=== PATIENT | female | born 1990 | race Caucasian/White ===

== ENCOUNTER 2020-11-08 18:15 | Emergency (ER) | payer BC ==
--- NOTE | 2020-11-08 18:57 | EDM.PDOC ---
<Reed Weldon - Last Filed: 11/08/20 18:56> ED HPI GENERAL MEDICAL PROBLEM - General Chief Complaint: LOGISTICS COORDINATOR Problem Stated Complaint: JERARDO REFERRAL Time Seen by Provider: 11/08/20 18:17 - History of Present Illness INITIAL COMMENTS - FREE TEXT/NARRATIVE: CHIEF COMPLAINT(S): Vaginal bleeding HISTORY OF PRESENT ILLNESS: This is a 30-year-old woman G1, P0 who comes to the emergency department with a chief complaint of vaginal bleeding. The patient states that she is at approximately 6 weeks gestation. 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 She states that she was seen at outside emergency department and was sent here for an ultrasound to evaluate. The patient states that starting today she started to have to a significant amount of vaginal bleeding but did not have any clots. She states that since having the bleeding today it has not improved. She denies any prior history of ectopic or miscarriage. She denies any history of . She denies any abdominal pain, fever or chills. She denies any trauma to the abdomen or any other concern. REVIEW OF SYSTEMS: Constitutional: Denies fever, chills. Eyes: Denies eye pain Ears, Nose, Mouth, & Throat: Denies earache Cardiovascular: Denies chest pain Respiratory: Denies shortness of breath Gastrointestinal: Denies Nausea, vomiting, diarrhea, hematochezia. Genitourinary: Positive for vaginal bleeding. Denies pelvic pain, dysuria, hematuria Skin:Denies a rash MSK: Denies joint pain Neurological: Denies blurred vision Psychiatric: Denies depression PAST MEDICAL HISTORY: As per history of present illness and as reviewed below otherwise noncontributory. SURGICAL HISTORY: As per history of present illness and as reviewed below otherwise noncontributory. LMP: 6 weeks ago SOCIAL HISTORY: As per history of present illness and as reviewed below otherwise noncontributory. FAMILY HISTORY: As per history of present illness and as reviewed below otherwise noncontributory. EXAMINATION OF ORGAN SYSTEMS/BODY AREAS: Constitutional: Blood pressure 140/112, heart rate 112, respiratory rate 16 with an oxygen saturation of 99% on room air. Temperature 36.6 General: Well-appearing woman who is in no acute distress Psychiatric: Appropriate mood and affect. Eyes: No scleral icterus or conjunctival erythema ENMT: Moist mucous membranes. No pharyngeal erythema Cardiovascular: Regular, rate, and rhythm. No gallops, murmurs, or rubs. Bilateral upper extremity pulses symmetric and intact. No peripheral edema. No JVD. Respiratory: Lungs clear to auscultation bilaterally. No wheezes, rales, or rhonchi. Gastrointestinal: Soft, non-tender, non-distended. Normoactive bowel sounds Genitourinary: No suprapubic tenderness Musculoskeletal: Normal range of motion. Skin: No lesions or abrasions. Neurological: Alert, GCS 15 MEDICAL DECISION MAKING AND COURSE IN THE ED WITH INTERPRETATION/REVIEW OF DIAGNOSTIC STUDIES: This is a 30-year-old woman who is G1, P0 at approximately 6 weeks gestation sent from outside hospital for concern for possible ectopic who comes to the emergency department with vaginal bleeding who is mildly tachycardic. At this time I did review the patient's outside records. Patient's labs are all within normal limits and quantitative hCG was elevated. At this time given the tachycardia we will perform a bedside ultrasound to evaluate for ruptured ectopic . Bedside transabdominal OB ultrasound Bedside transabdominal ultrasound ultrasound in 2 views reveals a single live intrauterine with a heart rate. There did appear to be a mild amount of pelvic fluid. We will obtain a formal ultrasound. Laboratory: CBC from outside hospital revealed a normal hemoglobin at 14.6 hematocrit of 42.4. Differential was normal. Quantitative hCG was 175,171. Type and screen revealed a positive. No program is indicated. DISPOSITION: Patient was signed out to oncoming night physician pending formal ultrasound read and final disposition CONDITION: Fair PROCEDURES: Bedside transabdominal OB ultrasound FINAL IMPRESSION(S)/DIAGNOSES: 1. Acute vaginal bleeding likely secondary to threatened Reed Weldon M.D. - Related Data Allergies Allergy/AdvReac Type Severity Reaction Status Date / Time cefaclor [From [facility]] Allergy Other Verified 11/08/20 18:25 Penicillins Allergy Other Verified 11/08/20 18:25 Home Meds: Home Meds Venlafaxine [Effexor] 25 mg PO DAILY 11/08/20 [History] Past Medical History - Past Health History Medical/Surgical History: Denies Medical/Surgical History - Infectious Disease History Infectious Disease History: Reports: None Social & Family History - Tobacco Use Tobacco Use Status *Q: Never Tobacco User - Caffeine Use Caffeine Use: Reports: None - Recreational Drug Use Recreational Drug Use: No ED ROS GENERAL - Review of Systems Review Of Systems: See Below ED EXAM, GI/ABD - Physical Exam Exam: See Below Departure - Departure Disposition: Home, Self-Care 01 Condition: Fair Clinical Impression: Threatened - Discharge Information *PRESCRIPTION DRUG MONITORING PROGRAM REVIEWED*: No *COPY OF PRESCRIPTION DRUG MONITORING REPORT IN PATIENT CALEB: No Instructions: Threatened Miscarriage, [id number] Referrals: Giovanna Alex NP [Primary Care Provider] - Forms: ED Department Discharge Additional Instructions: You were evaluated today on an emergent basis. At this time your ultrasound did show an intrauterine with good heart rate. At this time you have experienced a threatened miscarriage. As discussed this does increase your risk of complete miscarriage and close follow-up with merry go round attendant as recommended. I recommend that you follow-up with an 2 to 3 days. If you have any worsening bleeding or pelvic pain please return to the emergency department [facility] [address] [place] [address] [facility] [address] [place] [address] The patient is informed of any results of their evaluation and diagnostic workup and all questions are answered. They are given discharge instructions and return precautions. The patient is stable for discharge. The patient states they understand and agree with the plan and that they will return if their symptoms get worse or if they have any new concerns. The following information is given to patients seen in the emergency department who are being discharged to home. This information is to outline your options for follow-up care. We provide all patients seen in our emergency department with a follow-up referral. The need for follow-up, as well as the timing and circumstances, are variable depending upon the specifics of your emergency department visit. If you don't have a primary care physician on staff, we will provide you with a referral. We always advise you to contact your personal physician following an emergency department visit to inform them of the circumstance of the visit and for follow-up with them and/or the need for any referrals to a consulting specialist. The emergency department will also refer you to a specialist when appropriate. This referral assures that you have the opportunity for follow-up care with a specialist. All of these measure are taken in an effort to provide you with optimal care, which includes your follow-up. Under all circumstances we always encourage you to contact your private physician who remains a resource for coordinating your care. When calling for follow-up care, please make the office aware that this follow-up is from your recent emergency room visit. If for any reason you are refused follow-up, please contact the Emergency Department at and asked to speak to the emergency department charge nurse. Sepsis Event Note (ED) - Evaluation Sepsis Screening Result: No Definite Risk <Dante Patiño - Last Filed: 11/08/20 20:05> ED HPI GENERAL MEDICAL PROBLEM - History of Present Illness INITIAL COMMENTS - FREE TEXT/NARRATIVE: 8:03 PM: Signout received from Dr. Sanders at 7 PM. Patient presented to the ER today with vaginal bleeding during first trimester of . Patient has a live 8-week 3-day IUP with heart activity at 172 bpm Patient is clinically and hemodynamically stable throughout her ED visit. Patient is currently without any complaints of abdominal pain or discomfort. Patient reports minimal vaginal bleeding at this time. Patient will be discharged home with instructions to follow-up with her OB doctor this week for reevaluation. Reassessment at the time of disposition demonstrates that the patient is in no acute distress. The patient has remained stable throughout the entire ED visit and is without objective evidence for acute process requiring urgent intervention or hospitalization. The patient is stable for discharge, counseling is provided as documented above, discussed symptomatic treatment and specific conditions for return. I have spoken with the patient/caregiver and discussed todays findings, in addition to providing specific details for the plan of care. Questions are answered and there is agreement with the plan. Course - Vital Signs Last Recorded V/S: Last Vital Signs Temp 97.9 F 11/08/20 18:26 Pulse 112 H 11/08/20 18:26 Resp 16 11/08/20 18:26 BP 140/112 H 11/08/20 18:26 Pulse Ox 99 11/08/20 18:26 - Orders/Labs/Meds Orders: Active Orders 24 hr Category Date Time Status OB Transvaginal [US] Stat Exams 11/08/20 18:18 Taken Departure - Departure Time of Disposition: 20:05 Condition: Good Sepsis Event Note (ED) - Focused Exam Vital Signs: Vital Signs Temp Pulse Resp BP Pulse Ox 11/08/20 18:26 97.9 F 112 H 16 140/112 H 99
--- NOTE | 2020-11-08 20:05 | US ---
INDICATION: Bleeding, rule out ectopic. LMP 09/30/2020. COMPARISON: None. TECHNIQUE: Real-time ortiz-scale imaging of the pelvis was performed. FINDINGS: Sonographic imaging demonstrates a single living intrauterine gestation. The embryo has a regular cardiac rate measuring 172 beats per minute. The embryo`s crown-rump length measurement of 1.8 cm corresponds to a gestational age of 8 weeks 3 days with a sonographic due date of 06/17/2021. There is a normal-appearing yolk sac. The placenta has not yet developed. No evidence of a perigestational hemorrhage. The cervix appears closed. The right ovary measures 3.0 x 2.8 x 2.0 cm and the left ovary measures 2.4 x 2.2 x 2.3 cm. Normal blood flow seen in both ovaries. No abnormality in the adnexa. No free fluid in the cul-de-sac. IMPRESSION: 1. Single living intrauterine gestation with crown rump length 1.8 cm which corresponds to a gestational age of 8 weeks 3 days with a sonographic due date of 06/17/2021. 2. The clinical gestational age by LMP is 5 weeks 4 days. 3. Normal appearance of the ovaries. No evidence of ectopic . Dictated by Lexis Costello MD @ 11/08/2020 8:04:[address] Lexis Costello @ Nov 08 2020 8:04PM
== END 2020-11-08 20:28 | disposition home or self-care (01) ==
LOC: MW.ED 18:15
DX: O20.0 Threatened abortion (principal); Z88.1 Allergy status to other antibiotic agents; Z88.0 Allergy status to penicillin; Z79.899 Other long term (current) drug therapy
CPT/HCPCS: 76817; 76817-26; 99283; 99284-25

== ENCOUNTER 2021-05-29 18:48 | Inpatient (IN) | payer BC ==
[2021-05-29] MEDS ORDERED: Tranexamic Acid 1,000 MG in Sodium Chloride 0.9% 100 ML IV PRN (19:29)
[2021-05-29] MEDS ORDERED: Misoprostol 200 MCG Tab PO PRN (19:29)
[2021-05-29] MEDS ORDERED: Butorphanol 1 MG/ML SDV IVPUSH PRN (19:29)
[2021-05-29] MEDS ORDERED: Lidocaine 1% 50 ML MDV INJECT PRN (19:29)
[2021-05-29] MEDS ORDERED: Water For Irrigation,Sterile 1,000 ML Container IRR PRN (19:29)
[2021-05-29] MEDS ORDERED: Methylergonovine 0.2 MG/1 ML Amp IM PRN (19:29)
[2021-05-29] MEDS ORDERED: Sodium Chloride 0.9% 10 ML Syringe FLUSH PRN (19:29)
[2021-05-29] MEDS ORDERED: Sodium Chloride 0.9% 20 ML SDV IV PRN (19:29)
[2021-05-29] MEDS ORDERED: Sodium Chloride 0.9% 2.5 ML Syringe FLUSH PRN (19:29)
[2021-05-29] MEDS ORDERED: Carboprost Tromethamine 250 MCG/1 ML Amp IM PRN (19:29)
[2021-05-29] MEDS ORDERED: Oxytocin/0.9 % Sodium Chloride 30 UNIT/500 ML BAG IV SCH (19:30)
[2021-05-29] MEDS: Lactated Ringers 1,000 ML IV SCH (21:05)
[2021-05-29] MEDS ORDERED: Ropivacaine 100 ML ONE (21:54)
[2021-05-29] MEDS ORDERED: Bupivacaine 0.25% 10 ML SDV ONE (21:54)
[2021-05-29] MEDS ORDERED: ePHEDrine 50 MG/ML SDV IVPUSH PRN ×2 (22:36)
[2021-05-29] MEDS ORDERED: Ropivacaine 200 MG in Premix Bag 1 BAG EPIDUR SCH (22:45)
[2021-05-30] MEDS ORDERED: Misoprostol 25 MCG (1/4 of 100 MCG) Tab VAG PRN ×2 (02:49)
[2021-05-30] MEDS ORDERED: Terbutaline 1 MG/ML SDV SUBCUT PRN (02:49)
[2021-05-30] MEDS ORDERED: Oxytocin/0.9 % Sodium Chloride 30 UNIT/500 ML BAG IV SCH (03:00)
[2021-05-30] MEDS: Lactated Ringers 1,000 ML IV SCH (03:00)
[2021-05-30] MEDS ORDERED: Lanolin 100% Cream 7 GM Tube TOP PRN (06:22)
[2021-05-30] MEDS ORDERED: Witch Hazel Medicated Pads 40/Jar TOP PRN (06:22)
[2021-05-30] MEDS ORDERED: Benzocaine/Menthol 20%-0.5% Spray 78 GM Cannister TOP PRN (06:22)
[2021-05-30] MEDS ORDERED: Bisacodyl 10 MG Supp RECTAL PRN (06:22)
[2021-05-30] MEDS ORDERED: oxyCODONE 5 MG Tab PO PRN (06:22)
[2021-05-30] MEDS: Ibuprofen 800 MG Tab PO PRN ×2 (07:13→17:30)
[2021-05-30] MEDS: Venlafaxine 75 MG Cap.ER PO SCH (09:00)
[2021-05-30] MEDS: Docusate Sodium 100 MG Cap PO PRN (21:14)
[2021-05-31] MEDS: Acetaminophen 500 MG Tab PO PRN ×3 (03:17→19:37)
[2021-05-31] MEDS: Docusate Sodium 100 MG Cap PO PRN ×2 (09:21→19:37)
[2021-05-31] MEDS: Venlafaxine 75 MG Cap.ER PO SCH (09:22)
[2021-06-01] MEDS: Venlafaxine 75 MG Cap.ER PO SCH (08:57)
== END 2021-06-01 16:15 | disposition home or self-care (01) | DRG 560 ==
LOC: MW.OBCHECK 18:48 → MW.OB 18:50 → MW.OBCHECK 19:29 → OBSVTOIN 05-30 06:00 → MW.OB 05-30 11:21
PROVIDERS: ADMIT Obstetrics & Gynecology; ATTEND Obstetrics & Gynecology
PROC: 10E0XZZ Delivery of Products of Conception, External Approach (ICD-10-PCS; principal; 2021-05-30)
PROC: 0KQM0ZZ Repair Perineum Muscle, Open Approach (ICD-10-PCS; 2021-05-30)
PROC: 3E0R3BZ Introduction of Anesthetic Agent into Spinal Canal, Percutaneous Approach (ICD-10-PCS; 2021-05-30)
PROC: 00HU33Z Insertion of Infusion Device into Spinal Canal, Percutaneous Approach (ICD-10-PCS; 2021-05-30)
DX: O99.344 Other mental disorders complicating childbirth (principal); F41.9 Anxiety disorder, unspecified; O70.1 Second degree perineal laceration during delivery; Z3A.37 37 weeks gestation of pregnancy; Z37.0 Single live birth; Z20.822 Contact with and (suspected) exposure to COVID-19
CPT/HCPCS: 01967; 36415; 51702; 59025; 59409; 85014; 85018; 85027; 86592; 86850; 86900; 86901; A9270-GY; J2590; J2795; J3490; J7120; U0002